=== PATIENT | female | born 1980 | race Caucasian/White ===

== ENCOUNTER 2017-06-16 09:04 | Day surgery (SDC) | payer OTHER ==
[~2017-06-16] VITALS: Ht 162.6 cm; Wt 120.9 kg
[~2017-06-16 09:04] MED LIST: 0.9% SODIUM CHLORIDE 10 ML SYRINGE IVP PRN; METF500T4 PO; METO25 PO; METOPROLOL TARTRATE 50 MG TABLET PO ONE; PIOG45TA4 PO
[2017-06-16 10:01] LABS: ANION GAP 10 mmol/L (8-16); CALCIUM, TOTAL 8.4 mg/dL (8.8-10.5); CARBON DIOXIDE 27 mmol/L (22-29); CHLORIDE 103 mmol/L (98-107); CREATININE 0.68 mg/dL (0.60-1.30); GLOMERULAR FILTR. RATE CALC > 60 mL/min (>60); GLUCOSE,RANDOM 157 mg/dL (70-110); POTASSIUM 3.8 mmol/L (3.5-5.1); SODIUM SERUM 140 mmol/L (136-145); UREA NITROGEN, BLOOD 13 mg/dL (7-18)
[2017-06-16] MEDS ORDERED: SODIUM CHLORIDE 0.9% 500 ML IV ONE ×2 (10:25→10:29)
[2017-06-16] MEDS ORDERED: METOPROLOL TARTRATE 25 MG TABLET PO ONE (10:25)
[2017-06-16] MEDS ORDERED: METOPROLOL TARTRATE 5 MG/5 ML VIAL IVP ONE (10:25)
[2017-06-16] MEDS ORDERED: METOPROLOL TARTRATE 5 MG/5 ML VIAL ONE ×2 (10:29→11:10)
[2017-06-16] MEDS ORDERED: NITROGLYCERIN 400 MCG/SUBLINGUAL SPRAY 4.9 GM BOTTLE SL ONE (11:10)
[2017-06-16] MEDS ORDERED: IOVERSOL 350 MG/ML 150 ML VIAL ONE (12:36)
[2017-06-16] MEDS ORDERED: SODIUM CHLORIDE 0.9% 100 ML ONE (12:36)
== END 2017-06-16 12:15 | disposition home or self-care (01) ==
LOC: SURGERY 09:04 → EDSTATUS 11:00 → SURGERY 12:15
PROVIDERS: ATTEND Internal Medicine Cardiovascular Disease
DX: I49.8 Other specified cardiac arrhythmias (principal); I34.0 Nonrheumatic mitral (valve) insufficiency; I27.0 Primary pulmonary hypertension; E11.9 Type 2 diabetes mellitus without complications; E66.9 Obesity, unspecified; Z68.42 Body mass index [BMI] 45.0-49.9, adult; Z79.82 Long term (current) use of aspirin; Z79.84 Long term (current) use of oral hypoglycemic drugs; Z90.49 Acquired absence of other specified parts of digestive tract; Z97.5 Presence of (intrauterine) contraceptive device; Z79.899 Other long term (current) drug therapy
CPT/HCPCS: 36415; 75574; 80048; 84703; 93005; J3490; J7040; J7050; Q9967